=== PATIENT | male | born 2000 | race Hispanic/Latino ===

== ENCOUNTER 2023-02-28 21:22 | Emergency (ER) | payer SELFPAY ==
[2023-02-28 22:57] VITALS: BP 116/60
== END 2023-02-28 23:01 | disposition home or self-care (01) | DRG 563 ==
LOC: ED 21:22
DX: S83.92XA Sprain of unspecified site of left knee, initial encounter (principal); W01.0XXA Fall on same level from slipping, tripping and stumbling without subsequent striking against object, initial encounter; Y92.009 Unspecified place in unspecified non-institutional (private) residence as the place of occurrence of the external cause